=== PATIENT | female | born 1990 | race Caucasian/White ===

== ENCOUNTER 2019-04-08 19:03 | Emergency (ER) | payer SELFPAY ==
[2019-04-08 19:40] VITALS: BP 93/60
--- NOTE | 2019-04-08 19:41 | Emergency Department Report ---
ED Lower Extremity HPI - General Chief Complaint: Extremity Injury, Lower Stated Complaint: INFECTION ON RT TOE/PAIN Time Seen by Provider: 04/08/19 19:38 Source: patient, family Mode of arrival: Ambulatory Limitations: No Limitations - History of Present Illness Initial Comments: 28 y.o type 1 diabetic, presents to ER with right great toe pain, redness, [place]. -: Gradual - Related Data Previous Rx's Medication Instructions Recorded Last Taken Type Famotidine [Pepcid] 20 mg PO BID #16 tablet 09/14/18 Unknown Rx Ondansetron [Zofran Odt] 4 mg PO Q8HR PRN #12 tab.rapdis 09/14/18 Unknown Rx Sulfamethoxazole/Trimethoprim 1 each PO BID #10 tablet 09/14/18 Unknown Rx [Bactrim DS TAB] Allergies Allergy/AdvReac Type Severity Reaction Status Date / Time No Known Allergies Allergy Unverified 09/13/18 18:04 ED Review of Systems ROS: Stated complaint: INFECTION ON RT TOE/PAIN Other details as noted in HPI Comment: All other systems reviewed and negative Eyes: denies: eye pain ENT: denies: ear pain Respiratory: denies: cough Cardiovascular: denies: chest pain Musculoskeletal: joint swelling, arthralgia ED Past Medical Hx - Past Medical History Previous Medical History?: Yes Hx Diabetes: Yes - Surgical History Past Surgical History?: Yes Additional Surgical History: x 4 - Social History Smoking Status: Never Smoker Substance Use Type: None - Medications Home Medications: Home Medications Medication Instructions Recorded Confirmed Last Taken Type Famotidine [Pepcid] 20 mg PO BID #16 tablet 09/14/18 Unknown Rx Ondansetron [Zofran Odt] 4 mg PO Q8HR PRN #12 tab.rapdis 09/14/18 Unknown Rx Sulfamethoxazole/Trimethoprim 1 each PO BID #10 tablet 09/14/18 Unknown Rx [Bactrim DS TAB] ED Physical Exam - General Limitations: No Limitations General appearance: alert, in no apparent distress - Head Head exam: Present: atraumatic, normocephalic - Eye Eye exam: Present: normal appearance, PERRL, EOMI - ENT ENT exam: Present: normal exam, normal orophraynx - Neck Neck exam: Present: normal inspection - Respiratory Respiratory exam: Present: normal lung sounds bilaterally - Cardiovascular Cardiovascular Exam: Present: regular rate, normal rhythm - GI/Abdominal GI/Abdominal exam: Present: soft, normal bowel sounds ED Course Vital Signs 04/08/19 19:36 Temperature 98.6 F Pulse Rate 95 H Respiratory 18 Rate Blood Pressure 93/60 Critical care attestation.: If time is entered above; I have spent that time in minutes in the direct care of this critically ill patient, excluding procedure time. ED Disposition Condition: Stable
--- NOTE | 2019-04-08 20:41 | XRay Report ---
Examination: Right foot radiograph series, 3 views, 04/08/2019 Clinical information: Right foot pain. No history of trauma is given. Comparison: None. Findings: There is no evidence of acute bony abnormality. No focal soft tissue swelling is identified . Signer Name: Danielle Leigh MD Signed: 04/08/2019 8:37 PM Workstation Name: [id number]
== END 2019-04-08 20:36 | disposition home or self-care (01) ==
LOC: ED 19:03
DX: M79.674 Pain in right toe(s) (principal); E10.9 Type 1 diabetes mellitus without complications; Z98.890 Other specified postprocedural states; Z79.899 Other long term (current) drug therapy
CPT/HCPCS: 99283